=== PATIENT | male | born 1990 | race American Indian/Alaskan Native ===

== ENCOUNTER 2021-11-11 14:55 | Emergency (ER) | payer SELFPAY ==
[2021-11-11] MEDS ORDERED: NEOMY 3.5 MG/BACIT 400 UNITS/POLY B 5000 UNITS/GM OINT PACKET TP ONE (16:18)
--- NOTE | 2021-11-11 16:20 | Emergency Department Report ---
- General Chief Complaint: Laceration/Recheck/Suture Stated Complaint: FINGER LAC Time Seen by Provider: 11/11/21 16:16 Source: patient Mode of arrival: Ambulatory Limitations: No Limitations - History of Present Illness Initial Comments: 31-year-old black male presents to the emergency department for evaluation of right middle finger laceration. He states that he cut his finger 3 days ago while using hedge tremors. Bleeding controlled. He states that he had a tetanus shot 4 months ago after being cut and also. No fever or drainage from wound noted. -: Sudden, days(s) (3) Location: other (Right middle finger) Extremity Location: Right: Hand Place: home Patient Tetanus UTD: Yes Context: accidental Associated Symptoms: none Treatments Prior to Arrival: bandage - Related Data Previous Rx's Medication Instructions Recorded Last Taken Type Mupirocin [Bactroban 2%] 1 applic TP BID #1 tube 11/11/21 Unknown Rx Allergies Allergy/AdvReac Type Severity Reaction Status Date / Time No Known Allergies Allergy Unverified 11/11/21 15:34 ED Review of Systems ROS: Stated complaint: FINGER LAC Other details as noted in HPI Comment: All other systems reviewed and negative Constitutional: denies: chills, fever Eyes: denies: eye pain ENT: denies: ear pain Respiratory: denies: cough, shortness of breath Cardiovascular: denies: chest pain Endocrine: no symptoms reported Gastrointestinal: denies: abdominal pain, nausea, vomiting Genitourinary: denies: dysuria Musculoskeletal: denies: back pain Skin: denies: rash, lesions Neurological: denies: headache Psychiatric: denies: anxiety, depression Hematological/Lymphatic: denies: easy bleeding, easy bruising ED Past Medical Hx - Medications Home Medications: Home Medications Medication Instructions Recorded Confirmed Last Taken Type Mupirocin [Bactroban 2%] 1 applic TP BID #1 tube 11/11/21 Unknown Rx ED Physical Exam - General Limitations: No Limitations General appearance: alert, in no apparent distress - Head Head exam: Present: atraumatic, normocephalic - Eye Eye exam: Present: normal appearance. Absent: conjunctival injection - Neck Neck exam: Present: normal inspection - Respiratory Respiratory exam: Absent: respiratory distress - Cardiovascular Cardiovascular Exam: Present: regular rate - GI/Abdominal GI/Abdominal exam: Absent: distended - Extremities Exam Extremities exam: Present: normal inspection - Back Exam Back exam: Present: normal inspection - Neurological Exam Neurological exam: Present: alert - Psychiatric Psychiatric exam: Present: normal affect, normal mood - Skin Skin exam: Present: warm, dry, normal color - Expanded Skin Exam Expanded 1 - 1.5 cm laceration noted to right index finger. Area noted to have started healing with edges of the wound turned out. Entire wound bed and area around the wound noted to be white discolored. No drainage noted no erythema edema noted. No tenderness noted to touch. ED Course Vital Signs 11/11/21 15:36 Temperature 98.2 F Pulse Rate 88 Respiratory 18 Rate Blood Pressure 100/59 [Right] O2 Sat by Pulse 99 Oximetry ED Medical Decision Making - Medical Decision Making 31-year-old black male presents to the emergency department for evaluation of right middle finger laceration. He states that he cut his finger 3 days ago while using hedge tremors. Bleeding controlled. He states that he had a tet anus shot 4 months ago after being cut and also. No fever or drainage from wound noted. Patient was advised that we would be unable to suture or laceration. He was advised to use antibiotic ointment on the wound twice a day after cleaning. He was advised to follow-up in the emergency department if worsening symptoms or if he develops fever, swelling, redness, purulent drainage, or any other co ncerning symptoms. He verbalized understanding of plan of care. Critical care attestation.: If time is entered above; I have spent that time in minutes in the direct care of this critically ill patient, excluding procedure time. ED Disposition Clinical Impression: Laceration of finger Qualifiers: Encounter type: initial encounter Finger: middle finger Damage to nail status: without damage Foreign body presence: without foreign body Laterality: right Qualified Code(s): S61.212A - Laceration without foreign body of right middle finger without damage to nail, initial encounter Disposition: HOME / SELF CARE / HOMELESS Is pt being admited?: No Does the pt Need Aspirin: No Condition: Stable Instructions: Laceration Care, Adult, [id number] Additional Instructions: Place antibiotic ointment to area twice a day after cleaning wound. Cover when out and about and leave open to air when at home. If you develop fever, r edness, yellow-colored drainage, or any red streaks from the area return to the emergency department for further evaluation. Prescriptions: Mupirocin [Bactroban 2%] 1 applic TP BID #1 tube Referrals: SELENA GUILLERMO MD [Referring] - 3-5 Days Time of Disposition: 16:21
[2021-11-11 17:07] VITALS: BP 115/71
== END 2021-11-11 17:07 | disposition home or self-care (01) ==
LOC: ED 14:55
DX: S61.212A Laceration without foreign body of right middle finger without damage to nail, initial encounter (principal); Z79.899 Other long term (current) drug therapy; W26.8XXA Contact with other sharp object(s), not elsewhere classified, initial encounter; Y93.89 Activity, other specified; Y92.89 Other specified places as the place of occurrence of the external cause; Y99.8 Other external cause status
CPT/HCPCS: 99282